=== PATIENT | male | born 1960 | race Caucasian/White ===

== ENCOUNTER → 2016-07-06 | Outpatient (CLI) | payer OTHER ==
--- NOTE | 2016-07-06 08:56 | RAD ---
Abdominal ultrasound, 07/06/2016: History: Elevated liver enzymes The gallbladder is within normal limits in size. There is no sonographic evidence of cholelithiasis. The gallbladder mcgill are not thickened. No bile duct dilatation is seen. The visualized portions of liver, pancreas, spleen and both kidneys are unremarkable. The abdominal aorta is of normal caliber. The inferior vena cava shows no abnormality. No free fluid is evident in the abdomen. IMPRESSION: No significant abnormality is detected.
== END | disposition home or self-care (01) ==
LOC: US 07:40
PROVIDERS: ATTEND Physician Assistant
DX: R74.8 Abnormal levels of other serum enzymes (principal)
CPT/HCPCS: 76700